=== PATIENT | female | born 1985 | race Caucasian/White ===

== ENCOUNTER 2017-03-17 14:41 | Emergency (ER) | payer OTHER ==
[2017-03-17 15:47] LABS: ABSOLUTE NEUTROPHIL COUNT 8.8 K/mm3 (1.8-7.7); BASO % 0.2 % (0.2-1.0); EOS # 0.1 (0.0-0.5); EOS % 0.9 % (0.9-2.9); HEMATOCRIT 37.8 % (37.0-47.0); HEMOGLOBIN 12.8 gm/l (12.0-16.0); IMM NEUT% 0.4 % (0-1); LYMPH # 1.6 (1.0-4.8); LYMPH % 14.4 % (15-45); MEAN CELL VOLUME 91.1 fl (81.0-99.0); MEAN CORPUSCULAR HEMOGLOBIN 30.8 pg (27.0-31.0); MEAN CORPUSCULAR HGB CONC 33.9 g/dl (33.0-37.0); MEAN PLATELET VOLUME 8.8 fl (7.4-10.4); MONO # 0.5 (0.0-0.8); MONO % 4.5 % (4-12); NEUT % 79.6 % (43-75); PLATELET COUNT 336 K/mm3 (130-400); RED CELL DISTRIBUTION WIDTH 13.1 % (11.5-14.5)
[2017-03-17 16:06] LABS: ALB/GLOB RATIO 1.3 (>1.0); CALCIUM 9.4 mg/dL (8.6-10.3)
--- NOTE | 2017-03-17 16:35 | US ---
OB COMP <14 WKS HISTORY: Spotting since last night with positive . The patient is expected to be at 11 weeks 0 days gestational age. Left lower quadrant pain. COMPARISONS: None. FINDINGS: Ultrasonography demonstrates an intrauterine fluid collection. There is a visible yolk sac and pole. The crown to rump length measures 5.2 cm, equivalent to a gestational age of 11 weeks 6 days. There is cardiac activity identified with a heart rate of 160 bpm. No adjacent fluid collections are visualized. The maternal right ovary measures 2.6 x 2.2 x 4.1 cm. The left ovary measures 3.1 x 1.9 x 2.9 cm. There is flow within both ovaries. No adnexal masses or free fluid are seen. IMPRESSION: 1. A single live intrauterine gestation with mean ultrasound gestational age 11 weeks 6 days. The calculated sonographic EDC is 09/30/2017. 2. No maternal adnexal masses or free fluid seen.
[2017-03-17 17:19] LABS: PH,URINE 6.5 (5.0-8.0); SPECIFIC GRAVITY 1.015 (1.001-1.030); URINE BILIRUBIN NEGATIVE (NEGATIVE); URINE BLOOD NEGATIVE (NEGATIVE); URINE GLUCOSE (UA) NEGATIVE (NEGATIVE); URINE LEUKOCYTE ESTERASE NEGATIVE (NEGATIVE); URINE NITRITE NEGATIVE (NEGATIVE); URINE PROTEIN NEGATIVE (NEGATIVE); URINE UROBILINOGEN NORMAL (0-1 mg/dl)
[2017-03-17 17:20] LABS: URINE APPEARANCE CLEAR; URINE COLOR YELLOW
== END 2017-03-17 17:50 | disposition home or self-care (01) ==
LOC: ED 14:41
DX: O20.0 Threatened abortion (principal); Z3A.12 12 weeks gestation of pregnancy